=== PATIENT | female | born 1985 | race Caucasian/White ===

== ENCOUNTER 2021-03-24 10:15 | Inpatient (IN) | payer OTHER ==
[~2021-03-24] VITALS: Ht 167.6 cm; Wt 61.7 kg
[2021-03-25] MEDS ORDERED: DOXYLAMINE-PYR1 EACH (09:55)
[2021-03-25] MEDS ORDERED: LANSOPRAZOLE30 MG (09:55)
[2021-03-25] MEDS ORDERED: LORATADINE10 MG (09:56)
[2021-03-25] MEDS ORDERED: ONDANSETRON HCL8 MG (09:56)
== END 2021-03-25 11:46 | disposition home or self-care (01) | DRG 833 ==
LOC: OB/GYN 10:15
PROVIDERS: ADMIT Obstetrics & Gynecology Maternal & Fetal Medicine; ATTEND Obstetrics & Gynecology Maternal & Fetal Medicine
DX: O21.0 Mild hyperemesis gravidarum (principal); Z3A.01 Less than 8 weeks gestation of pregnancy

== ENCOUNTER 2021-10-30 15:44 | Outpatient (CLI) | payer OTHER ==
[~2021-10-30 15:44] MED LIST: DOXYLAMINE-PYR1 EACH; LANSOPRAZOLE30 MG; LORATADINE10 MG; ONDANSETRON HCL8 MG
== END 2021-10-31 07:43 | disposition home or self-care (01) ==
LOC: NST 15:44
PROVIDERS: ATTEND Obstetrics & Gynecology
DX: Z34.83 Encounter for supervision of other normal pregnancy, third trimester (principal)